=== PATIENT | female | born 1980 | race Caucasian/White ===

== ENCOUNTER 2016-10-30 10:48 | Emergency (ER) | payer MEDICAID ==
[2016-10-30 10:58] VITALS: BP 152/103
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
== END 2016-10-30 12:02 | disposition left against medical advice (07) ==
LOC: JD.ED 10:48
DX: S30.1XXA Contusion of abdominal wall, initial encounter (principal); Z88.0 Allergy status to penicillin; F17.210 Nicotine dependence, cigarettes, uncomplicated; V58.6XXA Passenger in pick-up truck or van injured in noncollision transport accident in traffic accident, initial encounter; Y92.410 Unspecified street and highway as the place of occurrence of the external cause
CPT/HCPCS: 81001; 81025; 99282; 99283

== ENCOUNTER 2017-11-25 00:59 | Emergency (ER) | payer MEDICAID ==
[2017-11-25 01:19] VITALS: BP 158/129
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
--- NOTE | 2017-11-25 07:55 | CR ---
Left humerus: Two views of the left humerus were obtained. Comparison: No previous study. No fracture or other bony abnormality is seen. Impression: 1. No abnormality is appreciated on two-view left humerus study. Diagnostic code #1
--- NOTE | 2017-11-25 07:55 | CR ---
Left forearm: Two views of the left forearm were obtained. Comparison: No previous study. No fracture or other abnormality is seen. Impression: 1. No abnormality is identified on two-view left forearm study. Diagnostic code #1
== END 2017-11-25 02:10 | disposition home or self-care (01) ==
LOC: JD.ED 00:59
DX: S50.12XA Contusion of left forearm, initial encounter (principal); S40.022A Contusion of left upper arm, initial encounter; F17.210 Nicotine dependence, cigarettes, uncomplicated; W22.8XXA Striking against or struck by other objects, initial encounter; Y92.89 Other specified places as the place of occurrence of the external cause; Z88.0 Allergy status to penicillin
CPT/HCPCS: 73060-26-LT; 73060-LT; 73090-26-LT; 73090-LT; 99283

== ENCOUNTER 2018-08-21 13:45 | Emergency (ER) | payer MEDICAID ==
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
[2018-08-21] MEDS ORDERED: Ketorolac 30 MG/ML SDV IVPUSH ONE (14:25)
--- NOTE | 2018-08-22 08:48 | CR ---
Left shoulder: Four views of the left shoulder were obtained. Comparison: Previous left humerus study partially showing the shoulder dated 11/25/17. Glenohumeral joint and acromioclavicular joint appear unremarkable. No fracture, dislocation or other bony abnormality is identified. Impression: 1. No abnormality is appreciated on left shoulder exam. Diagnostic code #1
== END 2018-08-21 15:30 | disposition left against medical advice (07) ==
LOC: JD.ED 13:45
DX: S49.92XA Unspecified injury of left shoulder and upper arm, initial encounter (principal); F17.210 Nicotine dependence, cigarettes, uncomplicated; Z88.0 Allergy status to penicillin; W51.XXXA Accidental striking against or bumped into by another person, initial encounter
CPT/HCPCS: 73030; 96374; 99283; J1885